=== PATIENT | female | born 1980 | race Caucasian/White ===

== ENCOUNTER → 2021-02-24 | Outpatient (CLI) | payer BC ==
[2006-07-05 10:00] VITALS: TEMP 97.5
[~2021-02-24] MED LIST: PRENATAL1 TA1 PO; ZANTAC150 MG PO; ZOFRAN 4MG T4 MG/TAB PO
== END ==
LOC: MC.RAD 11:45
DX: Z12.31 Encounter for screening mammogram for malignant neoplasm of breast (principal)